=== PATIENT | female | born 1950 ===

== ENCOUNTER 2022-05-10 09:08 | Outpatient (CLI) | payer OTHER ==
[~2022-05-10 09:08] MED LIST: SYNTHROID75 MCG
== END 2022-05-10 09:11 | disposition home or self-care (01) ==
LOC: SONOGRAMA 09:08
PROVIDERS: ATTEND Pathology Anatomic Pathology & Clinical Pathology
DX: D34 Benign neoplasm of thyroid gland (principal); E04.9 Nontoxic goiter, unspecified; E07.9 Disorder of thyroid, unspecified; E04.1 Nontoxic single thyroid nodule

== ENCOUNTER 2022-08-23 10:30 | Outpatient (CLI) | payer OTHER | END 2022-08-23 10:36 | disposition home or self-care (01) | LOC: RAD 10:30 | PROVIDERS: ATTEND Physical Medicine & Rehabilitation | DX: M17.11 Unilateral primary osteoarthritis, right knee (principal); M25.561 Pain in right knee; M54.59 Other low back pain; M16.11 Unilateral primary osteoarthritis, right hip ==

== ENCOUNTER 2022-10-04 12:02 | Outpatient (CLI) | payer OTHER | END 2022-10-04 12:07 | disposition home or self-care (01) | LOC: RAD 12:02 | PROVIDERS: ATTEND Physical Medicine & Rehabilitation | DX: M54.6 Pain in thoracic spine (principal); M54.59 Other low back pain; W19.XXXA Unspecified fall, initial encounter ==

== ENCOUNTER → 2025-01-20 | Emergency (ER) | payer OTHER ==
[~2025-01-20] VITALS: Ht 175.3 cm; Wt 68.9 kg
[~2025-01-20] MED LIST changes: +0.9 % SODIUM CHLORIDE 1,000 ML IV ONE; +CIPROFLOXACIN IN 5 % DEXTROSE 400 MG/200 ML PIGGYBAG IV ONE; +CIPROFLOXACIN IN 5 % DEXTROSE 400 MG/200 ML PIGGYBAG IV SCH; +DIATRIZOATE MEGLUMINE, SODIUM 30 ML BOTTLE ONE; +FAMOTIDINE/PF 20 MG/2 ML VIAL IV PUSH STA; +FAMOTIDINE/PF 20 MG/2 ML VIAL ONE; +METRONIDAZOLE/SODIUM CHLORIDE 500 MG/100 ML PIGGYBACK IV ONE; +METRONIDAZOLE/SODIUM CHLORIDE 500 MG/100 ML PIGGYBACK IV SCH; +ONDANSETRON HCL 2 MG/ML VIAL IV STA; +ONDANSETRON HCL 2 MG/ML VIAL ONE; +ONDANSETRON ODT4 MG PO; +PEPCID40 MG PO
[2025-01-21 01:40] LABS: BASO % 0.5 % (0.1-1.2); EOS # 0.00 (0.04-0.54); EOS % 0.0 % (0.7-7.0); RED CELL DISTRIBUTION WIDTH 13.0 % (11.6-14.4)
[2025-01-21 01:43] LABS: LYMPH # 0.41 (1.18-3.74); LYMPH % 10.7 % (19.3-53.1); MEAN PLATELET VOLUME 8.90 fl (9.4-12.4); MONO # 0.55 (0.24-0.82); MONO % 14.3 % (4.7-12.5); NEUT # 2.82 (1.56-6.13); NEUT % 73.5 % (34.0-71.1)
[2025-01-21 01:49] LABS: INR 1.07
[2025-01-21 01:55] LABS: ALT/SGPT 33.0 U/L (12-78); AST/SGOT 57.0 U/L (15-37); BILIRUBIN TOTAL 0.41 mg/dL (0.3-1.2); BUN CREA RATIO 16.0 (7.0-25.0); CREATININE SERUM 1.41 mg/dL (0.55-1.02); GFR 36.36; GLOBULINA 3.4 G/DL (2.4-3.5); GLUCOSE FASTING 102.0 mg/dL (65-100); OSMOLALITY SERUM 281.0 MOSM/KG (275-295)
[2025-01-21 02:24] LABS: URINE APPEARANCE Clear; URINE BILIRRUBIN Negative (NEGATIVE); URINE BLOOD Trace; URINE COLOR Yellow; URINE GLUCOSE Negative (NEGATIVE); URINE KETONE Trace (NEGATIVE); URINE LEUKOCYTE Trace; URINE NITRATE Negative; URINE UROBILINOGEN 0.2 E.U./dl
[2025-01-21 02:27] LABS: URINE BACTERIA 38.3 uL (0.0-1933); URINE CAST 1.61 uL (0.0-1.40); URINE EPITHELIAL CELLS 15.8 uL (0.0-38.8); URINE RBC 4.8 uL (0.0-20.8); URINE WBC 5.2 uL (0.0-23.2)
[2025-01-21 03:00] LABS: URINE PROTEIN 100 (NEGATIVE)
== END | disposition home or self-care (01) ==
LOC: ER 22:10
PROVIDERS: General Practice
DX: R10.13 Epigastric pain (principal); R10.32 Left lower quadrant pain; R11.0 Nausea; Z85.89 Personal history of malignant neoplasm of other organs and systems; K57.32 Diverticulitis of large intestine without perforation or abscess without bleeding; E03.8 Other specified hypothyroidism; Z91.013 Allergy to seafood
CPT/HCPCS: 36415; 74177; 96365; 96366; 99284; J0744; J2405; J3490; J7030; Q9965